=== PATIENT | female | born 1950 | race Caucasian/White ===

== ENCOUNTER 2018-06-24 09:57 | Emergency (ER) | payer MEDICARE ==
[2018-06-24 10:21] LABS: Clarity Clear (Clear); Glucose, Urine (Dipstick) Negative (Negative); Leukocyte Moderate (Negative); Nitrite Negative (Negative); Protein, Urine (Dipstick) 30 mg/dL (Neg-Trace)
[2018-06-24] MEDS ORDERED: Phenazopyridine HCl 97.5 MG TABLET ONE (10:21)
[2018-06-24] MEDS ORDERED: Ibuprofen 800 MG TAB ONE (10:21)
[2018-06-24 10:22] LABS: Bilirubin Negative (Negative); Blood, Urine Negative (Negative)
[2018-06-24 10:31] LABS: Bacteria/HPF 1+ HPF (None Seen); Hyaline Casts/LPF 0-3 HYALINE CAST LPF (0-3 Hyaline); RBC/HPF None Seen HPF (0-3); Renal Epithelial 0-3 HPF (0-3); Yeast-All Forms Rare HPF (None Seen)
[2018-06-24] MEDS ORDERED: Sulfameth/Trimethoprim DS 800-160mg TAB ONE (10:34)
== END 2018-06-24 10:38 | disposition home or self-care (01) ==
LOC: BURERS 09:57
DX: N39.0 Urinary tract infection, site not specified (principal); I10 Essential (primary) hypertension; E78.5 Hyperlipidemia, unspecified; Z79.899 Other long term (current) drug therapy; Z79.82 Long term (current) use of aspirin
CPT/HCPCS: 81003; 81015; 87086; 99283